=== PATIENT | female | born 1960 ===

== ENCOUNTER 2018-04-29 14:27 | Emergency (ER) | payer OTHER ==
[~2018-04-29] VITALS: Ht 154.9 cm; Wt 81.7 kg
[2018-04-29] MEDS ORDERED: METO25ER PO (14:46)
[2018-04-29] MEDS ORDERED: METF500 PO (14:47)
[2018-04-29] MEDS ORDERED: QUET200 PO (14:48)
[2018-04-29] MEDS ORDERED: MIRT30ST PO (14:48)
[2018-04-29] MEDS ORDERED: Catapres-Tts 11 EACH PO (14:49)
[2018-04-29] MEDS ORDERED: IBUP800 PO (15:20)
== END 2018-04-29 15:24 | disposition home or self-care (01) ==
LOC: ER 14:27
DX: M25.562 Pain in left knee (principal); Z88.0 Allergy status to penicillin; W21.06XA Struck by volleyball, initial encounter
CPT/HCPCS: 73562-LT; 99283-25